=== PATIENT | male | born 1985 | race Caucasian/White ===

== ENCOUNTER 2019-09-17 09:03 | Outpatient (CLI) | payer OTHER ==
[~2019-09-17] VITALS: Ht 175.3 cm; Wt 111.1 kg
[~2019-09-17 09:03] MED LIST: VOLTAREN-XR100 MG PO
== END 2019-09-17 11:32 | disposition home or self-care (01) ==
LOC: OFIC 805 09:03
DX: H91.8X1 Other specified hearing loss, right ear (principal); H61.23 Impacted cerumen, bilateral

== ENCOUNTER 2020-03-10 09:23 | Outpatient (CLI) | payer OTHER ==
[~2020-03-10] VITALS: Ht 175.3 cm; Wt 111.1 kg
== END 2020-03-10 16:05 | disposition home or self-care (01) ==
LOC: OFIC 805 09:23
PROVIDERS: ATTEND Otolaryngology
DX: H90.41 Sensorineural hearing loss, unilateral, right ear, with unrestricted hearing on the contralateral side (principal); H61.23 Impacted cerumen, bilateral; R42 Dizziness and giddiness

== ENCOUNTER → 2020-04-28 | Outpatient (CLI) | payer OTHER | END | disposition home or self-care (01) | LOC: OFIC 805 10:15 | PROVIDERS: ATTEND Otolaryngology | DX: H90.41 Sensorineural hearing loss, unilateral, right ear, with unrestricted hearing on the contralateral side (principal); H61.23 Impacted cerumen, bilateral; R42 Dizziness and giddiness ==

== ENCOUNTER 2020-05-08 19:24 | Inpatient (IN) | payer OTHER ==
[~2020-05-08] VITALS: Ht 175.3 cm; Wt 104.3 kg
[2020-05-14] MEDS ORDERED: LINEZOLID600 MG PO (16:13)
== END 2020-05-14 16:20 | disposition home or self-care (01) | DRG 603 ==
LOC: ER 19:24 → SURH 20:10 → MEDJ 05-11 10:57 → SURH 05-11 10:59 → MEDI 05-11 19:18
PROVIDERS: ADMIT Internal Medicine; ATTEND Internal Medicine
PROC: 3E0F7SF Introduction of Other Gas into Respiratory Tract, Via Natural or Artificial Opening (ICD-10-PCS; principal; 2020-05-10)
DX: L03.115 Cellulitis of right lower limb (principal); E66.8 Other obesity; E87.6 Hypokalemia; Z20.828 Contact with and (suspected) exposure to other viral communicable diseases